=== PATIENT | male | born 1940 | race Caucasian/White ===

== ENCOUNTER 2020-07-05 19:45 | Inpatient (IN) | payer OTHER ==
--- NOTE | 2020-07-05 19:57 | PDOC ---
Attending Attestation - Resident Resident Name: DiegojenniferMiky - ED Attending Attestation I have performed the following: I have examined & evaluated the patient, The case was reviewed & discussed with the resident, I agree w/resident's findings & plan - HPI HPI: 07/05/20 20:50 Pt comes with seizure episode today. He had been in the bathroom, and he felt dzzy and fell to the side. Family got him to the living room and there he had 3 small seizures back to back. Pt is on Keppra BID (dose unknown) Pt states that his last seizure was February and that he has about 2-3 seizures per year Pt has no neurologist; he sees Dr. Eliane Contreras of [facility]. - Physicial Exam PE: 07/05/20 20:52 Normal neuro exam CN 2 -12 intact Pt has good equal strength motor bilat no neuro deficits. Pt is A+Ox3 heart RRR lungs CTA B abd soft NT ND no c/c/e - Medical Decision Making 07/05/20 20:53 Pt will get labs and CT head and facial bones Case will be d/w neuro title i instructional assistant once all results are back. 07/05/20 21:10 Pt has gone for his CT scans 07/05/20 22:30 Pt's Natalia slightly elevated 2.0; BUN 28 Labs otherwise normal Keppra level sent. Pt's CXR just taken 07/05/20 22:31 Pt has a late subacute cortical infarct that could account for his dizziness. Pt will be admitted, he will get an MRI; pt's KEMAL will be investigated and neurology will be consulted. 07/05/20 22:55 Med hospitalists will be notified. Heart Score/ECG Review - ECG Intrepretation Rhythm: Regular Rhythm - Many Many: Normal - P and AZ Prominent R with upright T in V1 (true posterior ME): No - QRS Poor R Wave Progression: No Q Wave Present: No - ST and T Early Repolarization: No Non Specific ST-T Wave changes: No Flattened T Waves: No Prolonged Q-T Interval: No - ECG Impressions Normal ECG: Yes Non-specific ST Elevation: No Ischemic Changes: No Bradycardia: Yes Torsades jamarcus Pointes: No Discharge - Discharge Information Problems reviewed: Yes Clinical Impression/Diagnosis: Syncope, Seizure, Occipital cortex infarction, Medial orbital wall fracture Condition: Guarded - Follow up/Referral - Patient Discharge Instructions - Post Discharge Activity
[2020-07-05] MEDS ORDERED: levETIRAcetam 500 MG/5 ML INJECTION VIAL IVPB ONE ×2 (20:53→21:01)
--- NOTE | 2020-07-05 21:11 | PDOC ---
History of Present Illness <LoretoMaria - Last Filed: 07/05/20 22:35> - History of Present Illness Initial Comments: 07/05/20 21:10 79 yo m with pmh seizure, RI, Afib?, HTN, HLD, CHF presents to ED for syncopal event and seizure earlier today. Pt is luxembourger speaker so history was translated by daughter and son who are poor historians. Pt was walking to bathroom where he felt room was dizzy and he collapsed hit his head and had a seizure for about two minutes.; After, he was able to get up and go to the couch where he had another episode of seizure for two minutes where his entire body was shaking. Pt then had two episodes of nbnb emesis. Pt then had one more seizure lasting two minutes at which point EMS arrived and gave 5 versed IM. After which pt explains he did not have any more seizures and feels better. Pt currently denies any dizziness, chest pain, SOB, headache, weakness, abdominal pain. PMH: RI, afib?, HTN, HLD, CVA PSH: Left sided nephrectomy Meds: does not remember Allegies: NKA Social: significant smoking history quit in , social drinker, denies drugs <Miky Pulido - Last Filed: 07/06/20 00:03> - General Chief Complaint: Seizure Stated Complaint: SEIZURE Time Seen by Provider: 07/05/20 19:55 Past History <LoretoMaria - Last Filed: 07/05/20 22:35> - Medical History COPD: No CHF: Yes HTN: Yes - Psycho-Social/Smoking History Smoking History: Unknown if ever smoked - Substance Abuse Hx (Audit-C & DAST Scrn) How often the patient has a drink containing alcohol: Never Score: In Men: 4 or > Positive; In Women: 3 or > Positive: 0 Screen Result (Pos requires Nsg. Audit-10AR): Negative In the last yr the pt used illegal drug/Rx for NonMed reason: No Score: Yes response is considered Positive: 0 Screen Result (Positive result requires Nsg. DAST-10): Negative <Miky Pulido - Last Filed: 07/06/20 00:03> - Medical History Allergies/Adverse Reactions: Allergies Allergy/AdvReac Type Severity Reaction Status Date / Time No Known Allergies Allergy Verified 07/05/20 20:40 Review of Systems - Review of Systems Comments:: 07/05/20 22:47 GENERAL/CONSTITUTIONAL: No fever or chills. No weakness. HEAD, EYES, EARS, NOSE AND THROAT: Decreased vision in right eye due to jenniffer racts and glaucoma.. No ear pain or discharge. No sore throat. CARDIOVASCULAR: No chest pain or shortness of breath RESPIRATORY: No cough, wheezing, or hemoptysis. GASTROINTESTINAL: No current nausea. 2 episodes of vomiting. GENITOURINARY: No dysuria, frequency, or change in urination. MUSCULOSKELETAL: No joint or muscle swelling or pain. No neck or back pain. SKIN: No rash NEUROLOGIC: No headache. Pt had prior instance of vertigo (none currently), pt has left sided weakness (chronic since stroke last year) ENDOCRINE: No increased thirst. No abnormal weight change. ALLERGIC/IMMUNOLOGIC: No hives or skin allergy. <Miky Pulido - Last Filed: 07/06/20 00:03> *Physical Exam - Vital Signs Last Vital Signs Temp Pulse Resp BP Pulse Ox 98.1 F 62 19 167/82 98 07/05/20 20:13 07/05/20 20:13 07/05/20 20:13 07/05/20 20:13 07/05/20 20:13 <Maria Dangelo - Last Filed: 07/05/20 22:35> - Vital Signs Last Vital Signs Temp Pulse Resp BP Pulse Ox 98.1 F 62 19 167/82 98 07/05/20 20:13 07/05/20 20:13 07/05/20 20:13 07/05/20 20:13 07/05/20 20:13 - Physical Exam 07/06/20 00:00 GENERAL: Awake, alert, and fully oriented, in no acute distress HEAD: Erythema on frontal bone. EYES: EOMI, sclera anicteric, conjunctiva clear ENT: Auricles normal inspection, hearing grossly normal, nares patent, oropharynx clear without exudates. Moist mucosa NECK: Normal ROM, supple, no lymphadenopathy, JVD, or masses, no Cranial spine tenderness or step off LUNGS: No distress, speaks full sentences, decreased breath sounds at bases. HEART: Bradycardic and regular rhythm, normal S1 and S2, no murmurs, rubs or gallops, peripheral pulses normal and equal bilaterally. ABDOMEN: Soft, nontender, normoactive bowel sounds. No guarding, no rebound. No masses EXTREMITIES : Normal inspection, Normal range of motion, bilateral lower ext edema. NEUROLOGICAL: Cranial nerves II through XII intact. 5/5 muscle strength in Right upper ext and right lower ext. 4/5 muscle strength in right lower and right upper ext (chronic since last year). Finger to nose intact. Normal speech, no focal sensorimotor deficits SKIN: Warm, Dry, normal turgor, no rashes or lesions noted <Miky Pulido - Last Filed: 07/06/20 00:03> ED Treatment Course - LABORATORY CBC & Chemistry Diagram: 07/05/20 20:50 07/05/20 20:50 - ADDITIONAL ORDERS Additional order review: Laboratory Results 07/05/20 07/05/20 20:50 20:50 PT with INR 12.40 INR 1.05 PTT (Actin FS) 27.1 Sodium 142 Potassium 4.4 Chloride 105 Carbon Dioxide 28 Anion Gap 9 BUN 28.6 H Creatinine 2.0 H Est GFR (CKD-EPI)AfAm 35.73 Est GFR (CKD-EPI)NonAf 30.83 Random Glucose 123 H Calcium 9.2 Magnesium 2.4 Total Bilirubin 0.5 AST 27 ALT 32 Alkaline Phosphatase 64 Creatine Kinase 179 Creatine Kinase Index 1.0 CK-MB (CK-2) 1.9 Troponin I < 0.02 Total Protein 7.8 Albumin 4.0 07/05/20 20:50 RBC 5.32 MCV 87.9 MCHC 32.1 RDW 13.7 MPV 9.7 Neutrophils % 68.0 Lymphocytes % 24.2 Monocytes % 3.3 L Eosinophils % 4.0 Basophils % 0.5 - RADIOLOGY Radiology Studies Ordered: Category Date Time Status CERVICAL SPINE CT W/O CONTR [CT] Stat CT Scan 07/05/20 20:[address] W/O CONTRAST [CT] Stat CT Scan 07/05/20 20:[address] WITHOUT CONTRAST [CT] Stat CT Scan 07/05/20 20:23 Completed - Medications Given in the ED: ED Medications Discontinued Medications Generic Name Dose Route Start Last Admin Trade Name Freq PRN Reason Stop Dose Admin Levetiracetam 1,000 mg 07/05/20 20:53 07/05/20 21:44 Keppra Injection - IVPB 07/05/20 20:54 1,000 mg ONCE ONE Administration <Maria Dangelo - Last Filed: 07/05/20 22:35> - LABORATORY CBC & Chemistry Diagram: 07/05/20 20:50 07/05/20 20:50 <Miky Pulido - Last Filed: 07/06/20 00:03> Medical Decision Making - Medical Decision Making 79 year old male with above PMH presented to ED for multiple seizures occurring today, and a syncopal episode. Initial Vital Signs Temp Pulse Resp BP Pulse Ox 98.1 F 62 19 167/82 98 07/05/20 20:13 07/05/20 20:13 07/05/20 20:13 07/05/20 20:13 07/05/20 20:13 Laboratory Last Values WBC 6.9 K/mm3 (4.0-10.0) 07/05/20 20:50 RBC 5.32 M/mm3 (4.00-5.60) 07/05/20 20:50 Hgb 15.0 GM/dL (11.7-16.9) 07/05/20 20:50 Hct 46.7 % (35.4-49) 07/05/20 20:50 MCV 87.9 fl (80-96) 07/05/20 20:50 MCH 28.2 pg (25.7-33.7) 07/05/20 20:50 MCHC 32.1 g/dl (32.0-35.9) 07/05/20 20:50 RDW 13.7 % (11.9-15.9) 07/05/20 20:50 Plt Count 131 K/MM3 (134-434) L 07/05/20 20:50 MPV 9.7 fl (7.5-11.1) 07/05/20 20:50 Absolute Neuts (auto) 4.7 K/mm3 (1.5-8.0) 07/05/20 20:50 Neutrophils % 68.0 % (42.8-82.8) 07/05/20 20:50 Lymphocytes % 24.2 % (8-40) 07/05/20 20:50 Monocytes % 3.3 % (3.8-10.2) L 07/05/20 20:50 Eosinophils % 4.0 % (0-4.5) 07/05/20 20:50 Basophils % 0.5 % (0-2.0) 07/05/20 20:50 Nucleated RBC % 0 % (0-0) 07/05/20 20:50 PT with INR 12.40 SEC (9.7-13.0) 07/05/20 20:50 INR 1.05 (0.83-1.09) 07/05/20 20:50 PTT (Actin FS) 27.1 SECONDS (25.2-36.5) 07/05/20 20:50 Sodium 142 mmol/L (136-145) 07/05/20 20:50 Potassium 4.4 mmol/L (3.5-5.1) 07/05/20 20:50 Chloride 105 mmol/L (98-107) 07/05/20 20:50 Carbon Dioxide 28 mmol/L (21-32) 07/05/20 20:50 Anion Gap 9 MMOL/L (8-16) 07/05/20 20:50 BUN 28.6 mg/dL (7-18) H 07/05/20 20:50 Creatinine 2.0 mg/dL (0.55-1.3) H 07/05/20 20:50 Est GFR (CKD-EPI)AfAm 35.73 07/05/20 20:50 Est GFR (CKD-EPI)NonAf 30.83 07/05/20 20:50 Random Glucose 123 mg/dL (74-106) H 07/05/20 20:50 Calcium 9.2 mg/dL (8.5-10.1) 07/05/20 20:50 Magnesium 2.4 mg/dL (1.8-2.4) 07/05/20 20:50 Total Bilirubin 0.5 mg/dL (0.2-1) 07/05/20 20:50 AST 27 U/L (15-37) 07/05/20 20:50 ALT 32 U/L (13-61) 07/05/20 20:50 Alkaline Phosphatase 64 U/L (45-117) 07/05/20 20:50 Creatine Kinase 179 U/L (26-308) 07/05/20 20:50 Creatine Kinase Index 1.0 % (0.0-5.0) 07/05/20 20:50 CK-MB (CK-2) 1.9 ng/mL (0.5-3.6) 07/05/20 20:50 Troponin I < 0.02 ng/ml (0.00-0.05) 07/05/20 20:50 Total Protein 7.8 g/dl (6.4-8.2) 07/05/20 20:50 Albumin 4.0 g/dl (3.4-5.0) 07/05/20 20:50 No leukocytosis. No anemia. No electrolyte abnormalities. KEMAL. No transaminitis. Troponin undetectable. Medications ordered Sodium Chloride [Normal Saline -] 250 ml IV ONCE ONE levETIRAcetam INJECTION [Keppra Injection -] 1,[address]CE ONE CT head negative for acute findings, subacute to chronic infarct noted. Pt reported hx of prior TIA. Pt to be admitted. <Maria Dangelo - Last Filed: 07/05/20 22:35> - Medical Decision Making 07/05/20 23:24 Case was discussed with resident Dr. Back. Pt HPI, ED course and current plan of management was discussed with resident. Resident asked for neuro consult. Dr. Lombardi was notified of pt who states no MRI needed right now and will see pt tomorrow to decide on MRI. Pt was admitted to telemetry to Dr. Gan. <Miky Pulido - Last Filed: 07/06/20 00:03> Discharge <Maria Dangelo - Last Filed: 07/05/20 22:35> - Discharge Information Problems reviewed: Yes - Admission Yes <Miky Pulido - Last Filed: 07/06/20 00:03> - Discharge Information Clinical Impression/Diagnosis: Syncope, Seizure, Occipital cortex infarction, Medial orbital wall fracture Condition: Guarded
[2020-07-05 21:32] LABS: BASO % 0.5 % (0-2.0); HEMATOCRIT 46.7 % (35.4-49); LYMPH % 24.2 % (8-40); MCH 28.2 pg (25.7-33.7); MCHC 32.1 g/dl (32.0-35.9); MEAN CELL VOLUME 87.9 fl (80-96); MEAN PLT VOLUME 9.7 fl (7.5-11.1); MONO % 3.3 % (3.8-10.2); PLATELET COUNT 131 K/MM3 (134-434); RBC 5.32 M/mm3 (4.00-5.60); RDW 13.7 % (11.9-15.9); WHITE BLOOD COUNT 6.9 K/mm3 (4.0-10.0)
[2020-07-05 21:38] LABS: INR 1.05 (0.83-1.09); PROTHROMBIN TIME (PATIENT) 12.4 SEC (9.7-13.0)
[2020-07-05 21:41] LABS: ACTIVATED PTT 27.1 SECONDS (25.2-36.5)
[2020-07-05 22:02] LABS: ALK PHOS 64 U/L (45-117); ANION GAP 9 MMOL/L (8-16); BILIRUBIN,TOTAL 0.5 mg/dL (0.2-1); BLOOD UREA NITROGEN 28.6 mg/dL (7-18); CALCIUM 9.2 mg/dL (8.5-10.1); CHLORIDE 105 mmol/L (98-107); CO2 28 mmol/L (21-32); GLUCOSE,RANDOM 123 mg/dL (74-106); MAGNESIUM 2.4 mg/dL (1.8-2.4); POTASSIUM 4.4 mmol/L (3.5-5.1); SGOT/AST 27 U/L (15-37); SGPT/ALT 32 U/L (13-61); SODIUM 142 mmol/L (136-145); TOT PROT 7.8 g/dl (6.4-8.2)
[2020-07-05] MEDS ORDERED: SODIUM CHLORIDE 0.9% 500 ML INFUS.BAG IV ONE (22:30)
--- NOTE | 2020-07-05 23:33 | PN ---
Teaching Attending Note Name of Resident: Robinson Fulton ATTENDING PHYSICIAN STATEMENT I saw and evaluated the patient. I reviewed the resident's note and discussed the case with the resident. I agree with the resident's findings and plan as documented. SUBJECTIVE: Patient is a 79 year old man with a PMH of Seizure disorder, HI, Afib?, HTN, CVA, Glaucoma, Left nephrectomy (s/p trauma 18 years ago), HLD and CHF presents to ER for syncopal event and seizure earlier today. Patient reports he was walking to bathroom where he felt room was dizzy and he collapsed hit his head and had a seizure for about two minutes. After, he was able to get up and go to the couch where he had another episode of seizure for two minutes where his entire body was shaking. He then had two episodes of non bloody non bilious vomiting. Patient then had one more seizure lasting two minutes at which point EMS arrived and gave 5 versed IM. After which patient explains he did not have any more seizures and feels better. Patient denies chest pain, shortness of breath, abdominal pain, headache, palpitations, dizziness, fever, chills, nausea, vomiting, diarrhea, constipation, dysuria, frequency, urgency, melena, hematochezia or hematuria. Ex-smoker. Denies alcohol, tobacco or illicit drug use. No sick contacts or recent travels. Family history is unremarkable. OBJECTIVE: Alert and not orthostatic Vital Signs Period Temp Pulse Resp BP Sys/Gamez Pulse Ox Last 24 Hr 98.1 F 61-62 19-19 167/82 98-98 HEENT: No Jaundice, eye redness or discharge, PERRLA, EOMI. Normocephalic, atraumatic. Left facial droop; edentulous. External ears are normal and hearing is grossly intact. No nasal discharge. Neck: Supple, nontender. No palpable adenopathy or thyromegaly. No JVD Chest: Good effort. Clear to auscultation and percussion. Heart: Regular. No S3, rub or murmur Abdomen: Not distended, soft, nontender and no HSM. No rebound or guarding. Normal bowel sounds. Ext: Peripheral pulses intact. No leg edema. Skin: Warm and dry. No petechiae, rash or ecchymosis. Neuro: Alert. Oriented to person. CN 2-12 grossly intact. Sensation grossly intact in all four extremities and DTR are symmetric. Psych: Appropriate mood and affect. Good insight. Abnormal Lab Results 07/05/20 07/05/20 20:50 20:50 Plt Count 131 L Monocytes % 3.3 L BUN 28.6 H Creatinine 2.0 H Random Glucose 123 H Home Medications Medication Instructions Recorded Levetiracetam [Keppra] mg PO BID 07/06/20 Current Medications Generic Name Dose Route Start Last Admin Trade Name Sarita PRN Reason Stop Dose Admin Heparin Sodium (Porcine) 5,000 unit 07/06/20 06:00 Heparin - SQ TID [facility] ASSESSMENT AND PLAN: 1. Seizure with ?Syncope - Likely that the syncope may have resulted from the seizure. Patient loaded with 1000 mg IV Keppra in the ER. Keppra level pending. ER staff discussed case with the Neurologist who will see the case first before deciding on need for brain MRI. No evidence of acute intracranial pathology on noncontrast head CT scan - chronic vs subacute right occipital infarct is reported. C-spine CT did not show any fracture or subloxation. Facial bone CT showed medial wall fracture of the right orbit - deemed chronic. CXR shows wide mediastinum, unfolded aorta, cardiomegaly and RLL atelectasis. EKG shows sinus bradycardia at 52/minute, LAE, 1o AV block and QTc [address]-T wave changes. Initial troponin is negative. Will admit to telemetry, trend troponin, get ECHO, TSH, carotid doppler, fasting lipids, keep him NPO, do speech and swallow evaluation, neurochecks and implement fall/aspiration/seizure precautions. Consult PT. Get urinalysis STAT. During the day, will get details about history of Afib from his PCP. Viral testing for COVID-19 ordered and patient placed on airborne, droplet and contact isolation. Will continue comprehensive care for all of patients comorbid conditions. 2. KEMAL? Will get urinalysis, kidney sonogram, hydrate gently, monitor urine output and consult Nephrology. Avoid nephrotoxic agents such as NSAIDS, aminoglycosides, contrast dyes and certain Alternative medicine products. 3. Obesity Counseled on the risks associated with obesity. Will provide patient all the necessary assistance, counseling and positive reinforcement to facilitate weight loss. Consult gluer machine operator. 4. Uncontrolled hypertension Will restart suitable outpatient antihypertensive drugs when clinically appropriate. Subsequently, will revise regimen to ensure [id number] excellent BP control. Patient counseled on the injurious effects of uncontrolled hypertension. Nonpharmacologic measures to control hypertension like weight loss, salt restriction and exercise stressed. Importance of adherence to treatment regimen and attainment of normotension emphasized. 5. DVT prophylaxis - Heparin 5000u sq tid. 6. Advance directives - Full code
[2020-07-06 02:27] VITALS: BMI 34.4
--- NOTE | 2020-07-06 05:16 | HP ---
CHIEF COMPLAINT: syncopal episode PCP: HISTORY OF PRESENT ILLNESS: Pt was in bathroom yesterday and began feeling dizzy. He fell to the floor in the bathroom and had a seizure for about 2 minutes. After it stopped, the patient got up by himself and walked to his sofa and began to have a seizure again for 2 minutes. Thereafter, the pt had non-bilious, nonbloody vomiting, which was then followed by another 2 minutes of seizure. EMS arrived and gave the pt 5 versed IM. Denied urinary/bowel incontinence and post-ictal confusion. Seizures were witnessed by his family. Seizures first started 5 months. He saw a physician in a clinic in [place] and received keppra. Denies ever being hospitalized for a seizure. Takes keppra daily and is compliant with his medications. Last seizure was in February ER course was notable for: (1) BUN/Cr 28.6/2 (2) CTH: R occipital cortical infarct, chronic or late subacute. (3) C-Spine: no fracture, degenerative disc space narrowing (4) face bone CT; R orbit fracture chronic (5) EKG: sinus bradycardia. 1st degree AV block Recent Travel: traveled to [place] 3 months ago to visit family PAST MEDICAL HISTORY: HTN, HLD, seizures, LA, glaucoma, CVA Endorsed L sided weakness that improved after physical therapy PAST SURGICAL HISTORY: L nephrectomy 18 years ago 2/2 accident after falling off a ladder and injuring his kidney Social History: Smokin ppd X 30 yrs . Quit in 1980s Alcohol:socially Drugs: denies Lives with his son. Uses a cane for walking Allergies No Known Allergies Allergy (Verified 07/05/20 20:40) HOME MEDICATIONS: Home Medications Medication Instructions Recorded Levetiracetam [Keppra] mg PO BID 07/06/20 REVIEW OF SYSTEMS CONSTITUTIONAL: Absent: fever, chills, diaphoresis, generalized weakness, malaise, loss of appetite, weight change HEENT: Absent: rhinorrhea, nasal congestion, throat pain, throat swelling, difficulty swallowing, mouth swelling, ear pain, eye pain, visual changes CARDIOVASCULAR: Absent: chest pain, syncope, palpitations, irregular heart rate, lightheadedness, peripheral edema RESPIRATORY: Absent: cough, shortness of breath, dyspnea with exertion, orthopnea, wheezing, stridor, hemoptysis GASTROINTESTINAL: Absent: abdominal pain, abdominal distension, nausea, vomiting, diarrhea, constipation, melena, hematochezia GENITOURINARY: Absent: dysuria, frequency, urgency, hesitancy, hematuria, flank pain, genital pain MUSCULOSKELETAL: Absent: myalgia, arthralgia, joint swelling, back pain, neck pain SKIN: Absent: rash, itching, pallor HEMATOLOGIC/IMMUNOLOGIC: Absent: easy bleeding, easy bruising, lymphadenopathy, frequent infections ENDOCRINE: Absent: unexplained weight gain, unexplained weight loss, heat intolerance, cold intolerance NEUROLOGIC: Absent: headache, focal weakness or paresthesias, dizziness, unsteady gait, seizure, mental status changes, bladder or bowel incontinence PSYCHIATRIC: Absent: anxiety, depression, suicidal or homicidal ideation, hallucinations. PHYSICAL EXAMINATION Vital Signs - 24 hr 07/05/20 07/05/20 07/06/20 20:13 23:02 00:55 Temperature 98.1 F Pulse Rate 62 Pulse Rate [ 61 50 L Left] Respiratory 19 19 16 Rate Blood Pressure 167/82 Blood Pressure 164/87 [Left Arm] O2 Sat by Pulse 98 98 98 Oximetry (%) 07/06/20 02:00 Temperature 97.9 F Pulse Rate 51 L Pulse Rate [ Left] Respiratory 20 Rate Blood Pressure 172/77 H Blood Pressure [Left Arm] O2 Sat by Pulse 97 Oximetry (%) GENERAL: Awake, alert, and fully oriented, in no acute distress. HEAD: Normal with no signs of trauma. Facial droop on L side that resolved with smiling EYES: Pupils equal, round and reactive to light, extraocular movements intact, sclera anicteric, conjunctiva clear. No lid lag. EARS, NOSE, THROAT: Ears normal, nares patent, oropharynx clear without exudates. Moist mucous membranes. missing teeth NECK: Normal range of motion, supple without lymphadenopathy, JVD, or masses. LUNGS: Breath sounds equal, clear to auscultation bilaterally. No wheezes, and no crackles. No accessory muscle use. HEART: Regular rate and rhythm, normal S1 and S2 without murmur, rub or gallop. ABDOMEN: Soft, nontender, obese abd, normoactive bowel sound MUSCULOSKELETAL: Normal range of motion at all joints. No bony deformities or tenderness. No CVA tenderness. UPPER EXTREMITIES: 2+ pulses, warm, well-perfused. No cyanosis. No clubbing. No peripheral edema. 5/5 strength b/l. Sensation intact b/l LOWER EXTREMITIES: 2+ pulses, warm, well-perfused. No calf tenderness. No peripheral edema. 5/5 strength b/l. sensation intact b/l NEUROLOGICAL: Cranial nerves II-XII intact Normal speech. Normal gait. PSYCHIATRIC: Cooperative. Good eye contact. Appropriate mood and affect. Laboratory Results - last 24 hr 07/05/20 07/05/20 07/05/20 20:50 20:50 20:50 WBC 6.9 RBC 5.32 Hgb 15.0 Hct 46.7 MCV 87.9 MCH 28.2 MCHC 32.1 RDW 13.7 Plt Count 131 L MPV 9.7 Absolute Neuts (auto) 4.7 Neutrophils % 68.0 Lymphocytes % 24.2 Monocytes % 3.3 L Eosinophils % 4.0 Basophils % 0.5 Nucleated RBC % 0 PT with INR 12.40 INR 1.05 PTT (Actin FS) 27.1 Sodium 142 Potassium 4.4 Chloride 105 Carbon Dioxide 28 Anion Gap 9 BUN 28.6 H Creatinine 2.0 H Est GFR (CKD-EPI)AfAm 35.73 Est GFR (CKD-EPI)NonAf 30.83 Random Glucose 123 H Calcium 9.2 Magnesium 2.4 Total Bilirubin 0.5 AST 27 ALT 32 Alkaline Phosphatase 64 Creatine Kinase 179 Creatine Kinase Index 1.0 CK-MB (CK-2) 1.9 Troponin I < 0.02 Total Protein 7.8 Albumin 4.0 ASSESSMENT/PLAN: 79 M, PMH of HTN, HLD, seizures, LA, glaucoma, CVA presents s/p a witnessed syncopal episode. #syncopal episode 2/2 seizure -seizures witnessed by family -keppra 500 mg IVPB BID, home dose needs to be confirmed -seizure, fall, aspiration precautions -neuro checks -f/u speech & swallow evaluation. NPO until after eval -c/w tele monitoring -f/u echo, carotid ultrasound -QTC on telemonitoring 488. -orthostatics vitals negative -EKG: sinus bradycardia @ 52 bpm, 1st degree block. QTC 448. #KEMAL -f/u UA -f/u renal US -f/u renal consult -avoid nephrotoxic agents such as NSAIDs or contrast #Obesity BMI: 34.4 -f/u principal associate consult -fasting lipid #HTN #HLD #Glaucoma #H/o CVA Pt unable to recall home medications and dosages. #DVT Heparin Sq 500 TID #FEN no IVF monitor lytes NPO after midnight until cleared by speech and swallow #DISPO maintain tele Visit type - Medication Review Med list reviewed for High Risk Meds patients 65 and older: Yes - Emergency Visit Emergency Visit: Yes ED Registration Date: 07/05/20 Care time: The patient presented to the Emergency Department on the above date and was hospitalized for further evaluation of their emergent condition. - New Patient This patient is new to me today: Yes Date on this admission: 07/06/20 - Critical Care Critical Care patient: No ATTENDING PHYSICIAN STATEMENT I saw and evaluated the patient. I reviewed the resident's note and discussed the case with the resident. I agree with the resident's findings and plan as documented. SUBJECTIVE: OBJECTIVE: ASSESSMENT AND PLAN:
[2020-07-06] MEDS: HEPARIN NA (PORCINE) 5,000 UNITS/ML 1ML VIAL SQ SCH ×2 (06:26→13:41)
[2020-07-06] MEDS ORDERED: SODIUM CHLORIDE 1,000 ML IV SCH (07:15)
[2020-07-06 07:42] LABS: ALBUMIN 3.5 g/dl (3.4-5.0); BILIRUBIN,TOTAL 0.4 mg/dL (0.2-1); BLOOD UREA NITROGEN 25.9 mg/dL (7-18); CALCIUM 8.6 mg/dL (8.5-10.1); CREATININE 1.5 mg/dL (0.55-1.3); MAGNESIUM 2.2 mg/dL (1.8-2.4); PHOSPHOROUS 3.6 mg/dL (2.5-4.9); TOT PROT 6.8 g/dl (6.4-8.2)
[2020-07-06 09:46] LABS: EPI CELLS 6 /uL (0-25.1); HYALINE CASTS 0 /uL (0-3.1); PH,URINE 7.5 (5.0-8.0); URINE APPEARANCE CLEAR; URINE BACTERIA 262 /uL (0-1359); URINE BILIRUBIN NEGATIVE (NEGATIVE); URINE COLOR YELLOW; URINE GLUCOSE (UA) NEGATIVE (NEGATIVE); URINE KETONE NEGATIVE (NEGATIVE); URINE LEUK ESTERASE NEGATIVE (NEGATIVE); URINE NITRITE NEGATIVE (NEGATIVE); URINE PROTEIN 1+ (NEGATIVE); URINE UROBILINOGEN 0.2 mg/dL (0.2-1.0); URINE WBC 3 /uL (0-25.8)
[2020-07-06 09:48] LABS: BASO % 1.1 % (0-2.0); EOS % 10.1 % (0-4.5); HEMATOCRIT 46.2 % (35.4-49); HEMOGLOBIN 14.6 GM/dL (11.7-16.9); LYMPH % 36.7 % (8-40); MCH 28.4 pg (25.7-33.7); MCHC 31.5 g/dl (32.0-35.9); MEAN CELL VOLUME 90.1 fl (80-96); MEAN PLT VOLUME 10.2 fl (7.5-11.1); NEUT % 43.1 % (42.8-82.8); PLATELET COUNT 109 K/MM3 (134-434); RBC 5.12 M/mm3 (4.00-5.60); RDW 13.8 % (11.9-15.9); WHITE BLOOD COUNT 6.4 K/mm3 (4.0-10.0)
[2020-07-06] MEDS ORDERED: levETIRAcetam 500 MG/5 ML INJECTION VIAL IVPB SCH (10:00)
--- NOTE | 2020-07-06 10:51 | EKG ---
Test Reason : Blood Pressure : / mmHG Vent. Rate : 052 BPM Atrial Rate : 052 BPM P-R Int : 230 ms QRS Dur : 082 ms QT Int : 482 ms P-R-T Axes : 057 041 064 degrees QTc Int : 448 ms POOR DATA QUALITY, INTERPRETATION MAY BE ADVERSELY AFFECTED SINUS BRADYCARDIA WITH 1ST DEGREE A-V BLOCK POSSIBLE LEFT ATRIAL ENLARGEMENT BORDERLINE ECG NO PREVIOUS ECGS AVAILABLE Confirmed by Danica Stuart ([id number]) on 07/06/2020 10:51:02 AM Referred By: Confirmed By:Danica Stuart
--- NOTE | 2020-07-06 11:01 | PN ---
Progress Note (short form) - Note Progress Note: SUBJECTIVE Seen and examined at bedside. Spoke to patient through supervisor electron tube processing. Patient is alert and oriented x3 and states he is feeling much better. Contacted the family and attempt to obtain medications as well but they did not know them. Called the pharmacy but they are closed. Family instructed to obtain home medications and call nursing station. OBJECTIVE Last Vital Signs Temp Pulse Resp BP Pulse Ox 97.9 F 45 L 19 131/58 L 97 07/06/20 10:00 07/06/20 10:00 07/06/20 10:00 07/06/20 10:00 07/06/20 10:00 PE GEN: NAD HEENT: NC/AT PEARLL RESP: CTAB CARDS: RRR, -MRG ABD: soft, nt/nd +BS EXT: No swelling/Edema Neuro: Non-focal, A&OX3 Labs/Imaging: reviewed 79-year-old male with past medical history of seizure disorder, [place], A. fib?, Hypertension, CVA, glaucoma, left nephrectomy, hyperlipidemia, CHF presents to the ED with syncopal episode and seizure. #Syncope versus seizure Patient reports subjective feeling of dizziness and sitting down on the toilet after which family reports seizure. Syncopal event may have precipitated seizure Telemetry Echocardiogram Troponins negative x2 EKG shows sinus bradycardia with first-degree AV block Carotid Doppler Physical therapy Obtain home medications #Seizure Was witnessed by family. Report is consistent with tonic-clonic seizure Follow-up Keppra level Keppra 500 mg IV twice daily for now Confirm home dose Keppra Pending neurology consultation #Additional medical history Family is uncertain what medications the patient is on. His pharmacy was closed. Family has been asked to check bottles and call nursing stations with the doses and names of medications so that we can restart them #DVT prophylaxis: Subcu heparin Visit type - Emergency Visit Emergency Visit: Yes ED Registration Date: 07/05/20 Care time: The patient presented to the Emergency Department on the above date and was hospitalized for further evaluation of their emergent condition. - New Patient This patient is new to me today: Yes Date on this admission: 07/06/20 - Critical Care Critical Care patient: No - Medication Review Med list reviewed for High Risk Meds patients 65 and older: No (unable to obtain)
[2020-07-06 14:00] LABS: URINE RBC 60 /uL (0-23.9)
[2020-07-06] MEDS: METOPROLOL TARTRATE 25 MG TABLET (FP) PO SCH (16:42)
[2020-07-06] MEDS: TAMSULOSIN HCL 0.4 MG CAP PO SCH (16:42)
--- NOTE | 2020-07-06 18:33 | CON.NEURO ---
Consult - Smoking History Smoking history: Never smoked Have you smoked in the past 12 months: No Home Medications - Allergies Allergies/Adverse Reactions: Allergies Allergy/AdvReac Type Severity Reaction Status Date / Time No Known Allergies Allergy Verified 07/05/20 20:40 - Home Medications Home Medications: Ambulatory Orders Allopurinol [Zyloprim -] 100 mg PO BID 07/06/20 Apixaban [Eliquis -] 5 mg PO DAILY 07/06/20 Furosemide [Lasix -] 40 mg PO BID 07/06/20 Levetiracetam [Keppra] 500 mg PO DAILY 07/06/20 Lisinopril [Prinivil] 10 mg PO DAILY 07/06/20 Metoprolol Tartrate 25 mg PO DAILY 07/06/20 Pantoprazole Sodium [Protonix] 40 mg PO BID 07/06/20 Simvastatin [Zocor -] 40 mg PO HS 07/06/20 Sotalol HCl [Betapace -] 80 mg PO DAILY 07/06/20 Tamsulosin HCl [Flomax] 0.4 mg PO DAILY 07/06/20 Physical Exam-Neuro Vital Signs: Vital Signs Temperature 97.9 F 07/06/20 14:00 Pulse Rate 67 07/06/20 14:00 Respiratory Rate 20 07/06/20 14:00 Blood Pressure 141/85 07/06/20 14:00 O2 Sat by Pulse Oximetry (%) 99 07/06/20 14:00 Labs: CBC, BMP 07/06/20 05:57 07/06/20 05:57 INR, PTT INR 1.05 (0.83-1.09) 07/05/20 20:50 Assessment/Plan CC Breakthrough seizure HPI 79 year old male, seen with daughter at bed side. Patient was feeling dizzy for one day and had two episode of seizure. as per daughter he did not miss [facility]. He was given versed and later had ct head in hospital. ct head showed there is right occpital stroke He has history of stroke and on eliquis, not clear why he is on eliquis. He has stroke in past. Recent Travel: traveled to [place] 3 months ago to visit family PAST MEDICAL HISTORY: HTN, HLD, seizures, UT, glaucoma, CVA Endorsed L sided weakness that improved after physical therapy PAST SURGICAL HISTORY: L nephrectomy 18 years ago 2/2 accident after falling off a ladder and injuring his kidney Social History: Smokin ppd X 30 yrs . Quit in Alcohol:socially Drugs: denies Lives with his son. 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
[2020-07-06] MEDS: ALLOPURINOL 100 MG TABLET (FP) PO SCH (21:09)
[2020-07-06] MEDS: levETIRAcetam 250 MG TABLET PO SCH (21:09)
[2020-07-06] MEDS: PANTOPRAZOLE 40 MG TABLET PO SCH (21:09)
[2020-07-06] MEDS: APIXABAN 5 MG TABLET PO SCH (21:10)
[2020-07-06] MEDS ORDERED: ATORVASTATIN CA 10 MG TABLET (FP) PO SCH (22:00)
[2020-07-07 07:53] LABS: HEMATOCRIT 44.2 % (35.4-49); HEMOGLOBIN 14.3 GM/dL (11.7-16.9); MCH 28.4 pg (25.7-33.7); MCHC 32.3 g/dl (32.0-35.9); MEAN CELL VOLUME 87.8 fl (80-96); MEAN PLT VOLUME 9.8 fl (7.5-11.1); PLATELET COUNT 115 K/MM3 (134-434); RBC 5.03 M/mm3 (4.00-5.60); RDW 13.5 % (11.9-15.9); WHITE BLOOD COUNT 5.6 K/mm3 (4.0-10.0)
[2020-07-07 08:14] LABS: ANION GAP 5 MMOL/L (8-16); BLOOD UREA NITROGEN 23.9 mg/dL (7-18); CALCIUM 8.3 mg/dL (8.5-10.1); CHLORIDE 110 mmol/L (98-107); CHOLESTEROL 149 mg/dL (50-200); CO2 24 mmol/L (21-32); CREATININE 1.5 mg/dL (0.55-1.3); GLUCOSE,RANDOM 80 mg/dL (74-106); HDL CHOLESTEROL 44 mg/dL (40-60); LDL CHOLESTEROL (ONLY SJRH) 88 mg/dL (5-100); POTASSIUM 3.8 mmol/L (3.5-5.1); SODIUM 139 mmol/L (136-145); TRIGLYCERIDES 92 mg/dL (0-150)
[2020-07-07] MEDS: TAMSULOSIN HCL 0.4 MG CAP PO SCH (09:02)
[2020-07-07] MEDS: SOTALOL HCL 80 MG TABLET (FP) PO SCH (09:02)
[2020-07-07] MEDS: METOPROLOL TARTRATE 25 MG TABLET (FP) PO SCH (09:03)
[2020-07-07] MEDS: ALLOPURINOL 100 MG TABLET (FP) PO SCH ×2 (09:03→21:16)
[2020-07-07] MEDS: APIXABAN 5 MG TABLET PO SCH ×2 (09:03→21:16)
[2020-07-07] MEDS: levETIRAcetam 250 MG TABLET PO SCH ×2 (09:04→21:16)
[2020-07-07] MEDS: PANTOPRAZOLE 40 MG TABLET PO SCH ×2 (09:04→21:16)
--- NOTE | 2020-07-07 13:37 | PN ---
Teaching Attending Note Name of Resident: Tao Davidson ATTENDING PHYSICIAN STATEMENT I saw and evaluated the patient. I reviewed the resident's note and discussed the case with the resident. I agree with the resident's findings and plan as documented. SUBJECTIVE: pt seen and examined, denies complains OBJECTIVE: Last Vital Signs Temp Pulse Resp BP Pulse Ox 98.2 F 56 L 18 133/73 99 07/07/20 09:42 07/07/20 09:42 07/07/20 09:42 07/07/20 11:01 07/07/20 09:42 GEN: not in acute distressed, pleasant HEENT: NC/AT EOMI, pupils RRR, not p/c/j RESP: CTA bilat CARDS: non tachy, no murmurs ABD: soft, nt/nd +BS EXT: No swelling/Edema Neuro: Non-focal, A&OX3 CBCD WBC 5.6 K/mm3 (4.0-10.0) 07/07/20 05:40 RBC 5.03 M/mm3 (4.00-5.60) 07/07/20 05:40 Hgb 14.3 GM/dL (11.7-16.9) 07/07/20 05:40 Hct 44.2 % (35.4-49) 07/07/20 05:40 MCV 87.8 fl (80-96) 07/07/20 05:40 MCHC 32.3 g/dl (32.0-35.9) 07/07/20 05:40 RDW 13.5 % (11.9-15.9) 07/07/20 05:40 Plt Count 115 K/MM3 (134-434) L 07/07/20 05:40 MPV 9.8 fl (7.5-11.1) 07/07/20 05:40 CMP Sodium 139 mmol/L (136-145) 07/07/20 05:40 Potassium 3.8 mmol/L (3.5-5.1) 07/07/20 05:40 Chloride 110 mmol/L (98-107) H 07/07/20 05:40 Carbon Dioxide 24 mmol/L (21-32) 07/07/20 05:40 Anion Gap 5 MMOL/L (8-16) L 07/07/20 05:40 BUN 23.9 mg/dL (7-18) H 07/07/20 05:40 Creatinine 1.5 mg/dL (0.55-1.3) H 07/07/20 05:40 Random Glucose 80 mg/dL (74-106) 07/07/20 05:40 Calcium 8.3 mg/dL (8.5-10.1) L 07/07/20 05:40 Total Bilirubin 0.4 mg/dL (0.2-1) 07/06/20 05:57 AST 27 U/L (15-37) 07/06/20 05:57 ALT 27 U/L (13-61) 07/06/20 05:57 Alkaline Phosphatase 55 U/L (45-117) 07/06/20 05:57 Total Protein 6.8 g/dl (6.4-8.2) 07/06/20 05:57 Albumin 3.5 g/dl (3.4-5.0) 07/06/20 05:57 CARDIAC ENZYMES Creatine Kinase 179 U/L (26-308) 07/05/20 20:50 Troponin I 0.03 ng/ml (0.00-0.05) 07/06/20 05:57 Active Medications Allopurinol (Zyloprim -) 100 mg PO BID [facility] Last Admin: 07/07/20 09:03 Dose: 100 mg Documented by: Apixaban (Eliquis -) 5 mg PO BID [facility] Last Admin: 07/07/20 09:03 Dose: 5 mg Documented by: Atorvastatin Calcium (Lipitor -) 10 mg PO [facility] Last Admin: 07/06/20 21:09 Dose: 10 mg Documented by: Levetiracetam (Keppra -) 750 mg PO BID [facility] Last Admin: 07/07/20 09:04 Dose: 750 mg Documented by: Metoprolol Tartrate (Lopressor -) 25 mg PO DAILY [facility] Last Admin: 07/07/20 09:03 Dose: 25 mg Documented by: Pantoprazole Sodium (Protonix -) 40 mg PO BID [facility] Last Admin: 07/07/20 09:04 Dose: 40 mg Documented by: Sotalol HCl (Betapace -) 80 mg PO DAILY [facility] Last Admin: 07/07/20 09:02 Dose: 80 mg Documented by: Tamsulosin HCl (Flomax -) 0.4 mg PO DAILY@0830 [facility] Last Admin: 07/07/20 09:02 Dose: 0.4 mg Documented by: ASSESSMENT AND PLAN: 79-year-old male with past medical history of seizure disorder, [place], A. fib?, Hypertension, Hemorrhagic CVA, glaucoma, left nephrectomy, hyperlipidemia, CHF presents to the ED with syncopal episode and seizure. #Syncope vs convulsive syncope -denies post ictal confusion, had similar episodes in past Telemetry Echocardiogram Carotid Doppler not clinically significant -imaging showed rt orbital non displaced #, EOMI, no diplopia -MRI shows old hemorrhagic infarction with hemosiderin deposition Physical therapy doubt real seizure this time -neurology following #Seizure on Keppra 500 mg bid #aFib on satolol and metoprolol? -HR 50s EKG shows sinus bradycardia with first-degree AV block,QTc 448 -on eliquis with evidence of hemorrhagic stroke -Cardiology consult to optimize medications prior to d/c #DVT prophylaxis: on NOAC
--- NOTE | 2020-07-07 13:45 | PN ---
Physical Exam: SUBJECTIVE: Patient seen and examined at bedside. hook loader used for interview. Patient denies any overnight complaints. Negative change in orthostatic BP testing. Patient currently well. OBJECTIVE: Vital Signs Period Temp Pulse Resp BP Sys/Gamez Pulse Ox Last 24 Hr 97.9 F-98.6 F 47-67 18-20 133-183/73-97 97-99 GENERAL: The patient is awake, alert, and fully oriented, in no acute distress. LUNGS: Breath sounds equal, clear to auscultation bilaterally, no wheezes, no crackles, no accessory muscle use. HEART: Regular rate and rhythm, S1, S2 without murmur, rub or gallop. ABDOMEN: Soft, nontender, nondistended, normoactive bowel sounds, no guarding, no rebound, no hepatosplenomegaly, no masses. EXTREMITIES: 2+ pulses, warm, well-perfused, no edema. SKIN: Warm, dry, normal turgor, no rashes or lesions noted Laboratory Results - last 24 hr 07/06/20 07/06/20 07/07/20 00:30 09:00 05:40 WBC RBC Hgb Hct MCV MCH MCHC RDW Plt Count MPV Sodium 139 Potassium 3.8 Chloride 110 H Carbon Dioxide 24 Anion Gap 5 L BUN 23.9 H Creatinine 1.5 H Est GFR (CKD-EPI)AfAm 50.59 Est GFR (CKD-EPI)NonAf 43.65 Random Glucose 80 Calcium 8.3 L Triglycerides 92 Cholesterol 149 Total LDL Cholesterol 88 HDL Cholesterol 44 TSH 3.11 Urine RBC (Auto) 60 COVID-19 (ROBLES) Not detected 07/07/20 05:40 WBC 5.6 RBC 5.03 Hgb 14.3 Hct 44.2 MCV 87.8 MCH 28.4 MCHC 32.3 RDW 13.5 Plt Count 115 L MPV 9.8 Sodium Potassium Chloride Carbon Dioxide Anion Gap BUN Creatinine Est GFR (CKD-EPI)AfAm Est GFR (CKD-EPI)NonAf Random Glucose Calcium Triglycerides Cholesterol Total LDL Cholesterol HDL Cholesterol TSH Urine RBC (Auto) COVID-19 (ROBLES) Active Medications Generic Name Dose Route Start Last Admin Trade Name Freq PRN Reason Stop Dose Admin Allopurinol 100 mg 07/06/20 22:00 07/07/20 09:03 Zyloprim - PO 100 mg BID KAY Administration Apixaban 5 mg 07/06/20 22:00 07/07/20 09:03 Eliquis - PO 5 mg BID KAY Administration Atorvastatin Calcium 10 mg 07/06/20 22:00 07/06/20 21:09 Lipitor - PO 10 mg HS KAY Administration Levetiracetam 750 mg 07/06/20 22:00 07/07/20 09:04 Keppra - PO 750 mg BID KAY Administration Metoprolol Tartrate 25 mg 07/06/20 15:45 07/07/20 09:03 Lopressor - PO 25 mg DAILY KAY Administration Pantoprazole Sodium 40 mg 07/06/20 22:00 07/07/20 09:04 Protonix - PO 40 mg BID KAY Administration Sotalol HCl 80 mg 07/07/20 10:00 07/07/20 09:02 Betapace - PO 80 mg DAILY KAY Administration Tamsulosin HCl 0.4 mg 07/06/20 15:45 07/07/20 09:02 Flomax - PO 0.4 mg DAILY@0830 KAY Administration ASSESSMENT/PLAN: Mr Braxton Choi is a 79M w a h/o seizure disorder, [place], A. fib on eliquis, Hypertension, CVA, glaucoma, L nephrectomy, hyperlipidemia, CHF presented to the emergency department for a syncope and possible seizure. #Syncope - patient currently monitored on telemetry - echocardiogram pending - Patient placed on Sotalol and metoprolol - Cardiology to recommend medication adjustment - Troponins negative x2 - follow up 3rd trop to r/o ACS Carotid Doppler negative for stenosis Physical therapy Obtain home medications #Seizure -Witnessed tonic-clonic seizure - Keppra level pending Keppra 750 mg IV BID as per neurology (Dr. Cox) - Brain MRI reveals no acute pathology - C spine CT reveals no acute pathology - EEG pending Confirm home dose Keppra #DVT prophylaxis - sq lovenox Visit type - Emergency Visit Emergency Visit: Yes ED Registration Date: 07/05/20 Care time: The patient presented to the Emergency Department on the above date and was hospitalized for further evaluation of their emergent condition. - New Patient This patient is new to me today: Yes Date on this admission: 07/07/20 - Critical Care Critical Care patient: No - Discharge Referral Referred to [facility] No - Medication Review Med list reviewed for High Risk Meds patients 65 and older: Yes ATTENDING PHYSICIAN STATEMENT I saw and evaluated the patient. I reviewed the resident's note and discussed the case with the resident. I agree with the resident's findings and plan as documented. SUBJECTIVE: OBJECTIVE: ASSESSMENT AND PLAN:
--- NOTE | 2020-07-07 15:35 | CON.CARD ---
Consult Consult Specialty:: cardiology Reason for Consultation:: seizures; ?syncope - History of Present Illness History of Present Illness: Pt comes with seizure episode today. He had been in the bathroom, and he felt dizzy and fell to the side. Family got him to the living room and there he had 3 small seizures back to back. Pt is on Keppra BID (dose unknown) Pt states that his last seizure was February and that he has about 2-3 seizures per year Pt has no neurologist; he sees Dr. Eliane Contreras of [facility]. 79 yo m with pmh seizure, MA, Afib?, HTN, HLD, CHF presents to ED for syncopal event and seizure earlier today. Pt was walking to bathroom where he felt room was dizzy and he collapsed hit his head and had a seizure for about two minutes.; After, he was able to get up and go to the couch where he had another episode of seizure for two minutes where his entire body was shaking. Pt then had two episodes of emesis. Pt then had one more seizure lasting two minutes at which point EMS arrived and gave 5 versed IM. After which pt explains he did not have any more seizures and feels better. Pt currently denies any dizziness, chest pain, SOB, headache, weakness, abdominal pain. IN ER, pt was noted to be on both Sotalol and metoprolol. PMH: MA, afib?, HTN, HLD, CVA PSH: Left sided nephrectomy Meds: does not remember Allegies: NKA Social: significant smoking history quit in 1980s, social drinker, denies drugs PMD: Eliane Contreras - Smoking History Smoking history: Never smoked Have you smoked in the past 12 months: No Home Medications - Allergies Allergies/Adverse Reactions: Allergies Allergy/AdvReac Type Severity Reaction Status Date / Time No Known Allergies Allergy Verified 07/05/20 20:40 - Home Medications Home Medications: Ambulatory Orders Allopurinol [Zyloprim -] 100 mg PO BID 07/06/20 Apixaban [Eliquis -] 5 mg PO DAILY 07/06/20 Furosemide [Lasix -] 40 mg PO BID 07/06/20 Levetiracetam [Keppra] 500 mg PO DAILY 07/06/20 Lisinopril [Prinivil] 10 mg PO DAILY 08/08/20 Metoprolol Tartrate 25 mg PO DAILY 07/06/20 Pantoprazole Sodium [Protonix] 40 mg PO BID 07/06/20 Simvastatin [Zocor -] 40 mg PO HS 07/06/20 Sotalol HCl [Betapace -] 80 mg PO DAILY 07/06/20 Tamsulosin HCl [Flomax] 0.4 mg PO DAILY 07/06/20 - Risk Factors Known Risk Factors: Yes: Age, Gender, Other Vital Signs: Vital Signs Temperature 98.5 F 07/07/20 14:05 Pulse Rate 49 L 07/07/20 14:05 Respiratory Rate 20 07/07/20 14:05 Blood Pressure 134/70 07/07/20 14:05 O2 Sat by Pulse Oximetry (%) 99 07/07/20 09:42 - Other Data Labs, Other Data: CBC, BMP 07/07/20 05:40 07/07/20 05:40 INR, PTT INR 1.05 (0.83-1.09) 07/05/20 20:50 Troponin, BNP 07/07/20 05:40 Troponin I < 0.02 Troponin, BNP 07/07/20 05:40 Troponin I < 0.02 Assessment/Plan Seizures hx right occipital parietal hemorrhagic CVA ? 2 yrs ago; signs of HTN affecting the brain HTN HLD obesity ?PAF Hx MA, CHF EKG: sinus bradycardia; 1st degree AVB; QTC wnl. Plan: Seizure w/u and Rx per neurologist. Stop metoprolol; continue Sotalol (on once a day, and this is appropriate, given Cr clearance <60, as discussed with pharmacist); f/u prior cardiac workup at [facility] (pt says he had "electrical shock" to stop arrhythmia (?AF/flutter) and was then placed on Apixaban a year ago). Will f/u HR, QTc. ECHO for LVEF, chamber sizes, valve status. Telemetry Increase statin dose; keep LDL cholesterol < 70 mg/dL. Addendum: Pt's son visited pt. He says his father had an argument with his , then went to the bathroom. He was trying to have a bowel movement when he fell; they could not open the door because his body was blocking it, and had to wait until he woke up on his own. He then had another episode a few minutes later that elicited EMS. Pt is on Sotalol 80 bid and metoprolol 25 mg (?daily; ? tartrate or succinate). Pt was treated at [facility] for cardioversion of "atrial fibrillation". 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 Combs (?amna).
[2020-07-07] MEDS ORDERED: ATORVASTATIN CA 10 MG TABLET (FP) PO SCH (16:57)
--- NOTE | 2020-07-07 20:01 | PN ---
Progress Note (short form) - Note Progress Note: CC Breakthrough seizure HPI 79 year old male, seen with daughter at bed side. Patient was feeling dizzy for one day and had two episode of seizure. as per daughter he did not miss medicaiton. He was given versed and later had ct head in hospital. ct head showed there is right occpital stroke He has history of stroke and on eliquis, not clear why he is on eliquis. He has stroke in past. 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
[2020-07-08 06:51] LABS: HEMATOCRIT 44.1 % (35.4-49); HEMOGLOBIN 14.3 GM/dL (11.7-16.9); MCH 28.4 pg (25.7-33.7); MCHC 32.4 g/dl (32.0-35.9); MEAN CELL VOLUME 87.7 fl (80-96); MEAN PLT VOLUME 9.7 fl (7.5-11.1); PLATELET COUNT 118 K/MM3 (134-434); RBC 5.03 M/mm3 (4.00-5.60); RDW 13.5 % (11.9-15.9); WHITE BLOOD COUNT 5.6 K/mm3 (4.0-10.0)
[2020-07-08 07:11] LABS: BLOOD UREA NITROGEN 23.4 mg/dL (7-18); CALCIUM 8.7 mg/dL (8.5-10.1); CREATININE 1.5 mg/dL (0.55-1.3); MAGNESIUM 2.1 mg/dL (1.8-2.4); PHOSPHOROUS 3.3 mg/dL (2.5-4.9)
--- NOTE | 2020-07-08 08:22 | PN ---
Progress Note, Physician History of Present Illness: 79 yo m with pmh seizure, MA, Afib?, HTN, HLD, CHF presents to ED for syncopal event and seizure earlier today. Pt was walking to bathroom where he felt room was dizzy and he collapsed hit his head and had a seizure for about two minutes.; After, he was able to get up and go to the couch where he had another episode of seizure for two minutes where his entire body was shaking. Pt then had two episodes of emesis. Pt then had one more seizure lasting two minutes at which point EMS arrived and gave 5 versed IM. After which pt explains he did not have any more seizures and feels better. Pt currently denies any dizziness, chest pain, SOB, headache, weakness, abdominal pain. IN ER, pt was noted to be on both Sotalol and metoprolol. PMH: MA, afib?, HTN, HLD, CVA PSH: Left sided nephrectomy Meds: does not remember Allegies: NKA Social: significant smoking history quit in , social drinker, denies drugs - Current Medication List Current Medications: Active Medications Allopurinol (Zyloprim -) 100 mg PO BID [facility] Last Admin: 07/07/20 21:16 Dose: 100 mg Documented by: Apixaban (Eliquis -) 5 mg PO BID [facility] Last Admin: 07/07/20 21:16 Dose: 5 mg Documented by: Atorvastatin Calcium (Lipitor -) 20 mg PO HS [facility] Last Admin: 07/07/20 21:16 Dose: 20 mg Documented by: Levetiracetam (Keppra -) 750 mg PO BID [facility] Last Admin: 07/07/20 21:16 Dose: 750 mg Documented by: Pantoprazole Sodium (Protonix -) 40 mg PO BID [facility] Last Admin: 07/07/20 21:16 Dose: 40 mg Documented by: Sotalol HCl (Betapace -) 80 mg PO DAILY [facility] Last Admin: 07/07/20 09:02 Dose: 80 mg Documented by: Tamsulosin HCl (Flomax -) 0.4 mg PO DAILY@0830 [facility] Last Admin: 07/07/20 09:02 Dose: 0.4 mg Documented by: - Objective Vital Signs: Vital Signs Temperature 98.2 F 07/08/20 06:00 Pulse Rate 55 L 07/08/20 06:00 Respiratory Rate 18 07/08/20 06:00 Blood Pressure 136/89 07/08/20 06:00 O2 Sat by Pulse Oximetry (%) 95 07/08/20 06:00 Eyes: Yes: WNL, Conjunctiva Clear, EOM Intact HENT: Yes: WNL, Atraumatic, Normocephalic Neck: Yes: WNL, Supple, Trachea Midline Cardiovascular: Yes: WNL, Regular Rate and Rhythm Respiratory: Yes: WNL, Regular, CTA Bilaterally Gastrointestinal: Yes: WNL, Normal Bowel Sounds Genitourinary: Yes: WNL Musculoskeletal: Yes: WNL Extremities: Yes: WNL Edema: No Integumentary: Yes: WNL Labs: CBC, BMP 07/08/20 05:55 07/08/20 05:55 INR, PTT INR 1.05 (0.83-1.09) 07/05/20 20:50 Problem List - Problems (1) Medial orbital wall fracture Code(s): S02.839A - FRACTURE OF MEDIAL ORBITAL WALL, UNSPECIFIED SIDE, INIT (2) Occipital cortex infarction Code(s): I63.9 - CEREBRAL INFARCTION, UNSPECIFIED (3) Seizure Code(s): R56.9 - UNSPECIFIED CONVULSIONS (4) Syncope Code(s): R55 - SYNCOPE AND COLLAPSE Assessment/Plan Seizures hx right occipital parietal hemorrhagic CVA ? 2 yrs ago; signs of HTN affecting the brain HTN HLD obesity ?PAF Hx MA, CHF EKG: sinus bradycardia; 1st degree AVB; QTC wnl. Plan: Seizure w/u and Rx per neurologist. Stop metoprolol; continue Sotalol (on once a day, and this is appropriate, given Cr clearance <60, as discussed with pharmacist); f/u prior cardiac workup at [facility] (pt says he had "electrical shock" to stop arrhythmia (?AF/flutter) and was then placed on Apixaban a year ago). Will f/u HR, QTc. ECHO for LVEF, chamber sizes, valve status. Telemetry Increase statin dose; keep LDL cholesterol < 70 mg/dL. Addendum: Pt's son visited pt. He says his father had an argument with his , then went to the bathroom. He was trying to have a bowel movement when he fell; they could not open the door because his body was blocking it, and had to wait until he woke up on his own. He then had another episode a few minutes later that elicited EMS. Pt is on Sotalol 80 bid and metoprolol 25 mg (?daily; ? tartrate or succinate). Pt was treated at [facility] for cardioversion of "atrial fibrillation". 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 Combs (?amna).
[2020-07-08] MEDS: TAMSULOSIN HCL 0.4 MG CAP PO SCH (09:14)
[2020-07-08] MEDS: levETIRAcetam 250 MG TABLET PO SCH (09:14)
[2020-07-08] MEDS: APIXABAN 5 MG TABLET PO SCH (09:14)
[2020-07-08] MEDS: PANTOPRAZOLE 40 MG TABLET PO SCH (09:14)
[2020-07-08] MEDS: ALLOPURINOL 100 MG TABLET (FP) PO SCH (09:14)
--- NOTE | 2020-07-08 10:23 | CONSULT ---
Admitting History and Physical - Admission History of Present Illness: 79 yo m with pmh seizure, [place], Afib?, HTN, HLD, CHF presents to ED for syncopal event and seizure on 07/05. 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 M/V changes Selected Entries 07/07/20 07/07/20 07/08/20 09:30 20:36 02:00 Breakfast 100% Diet Tolerated Well Well Supper 100% Pulse Rate 49 L Blood Pressure 125/71 07/08/20 07/08/20 07/08/20 06:00 09:17 10:00 Breakfast 100% Diet Tolerated Well Supper Pulse Rate 55 L 50 L Blood Pressure 136/89 125/69 Laboratory Tests 07/06/20 07/08/20 00:30 05:55 WBC 5.6 COVID-19 ([place]) Not detected On reg diet/thin liquids. History Source: Patient, Medical Record Limitations to Obtaining History: No Limitations - Smoking History Smoking history: Never smoked Have you smoked in the past 12 months: No History - Admission Reason For Visit: SEIZURE,SYNCOPE - Diagnostics X-ray: Report Reviewed CT Scan: Report Reviewed MRI: Report Reviewed - General Mental Status: Alert and Oriented Attention: Intact Ability to Follow Directions: Excellent Head/Neck Control: WFL - Hearing Hearing: Functional Speech Evaluation - Communication Primary Language: ZAMBIAN Communication: Yes: Within Normal Limits - Speech Production Able to Make Needs Known: Yes: WNL Intelligibility: Yes: WNL - Speech Characteristics Voice Loudness: Normal Voice Pitch: Yes: Normal Voice Phonatory-based Quality: Yes: Normal Speech Pattern: Normal Speech Clarity: < 100% Nasal Resonance: Normal Articulation: Yes: Precise Rate of Speech: Intact - Language/Auditory Comprehension Follows: Yes: 2 Stage Simple Commands - Language/Verbal Expression Able to Respond to Simple Queries: Yes: WNL Able to Communicate Wants and Needs: Yes: WNL Functional Communication Status: Yes: WNL - Swallow Evaluation/Bedside Assessment Current Nutritional Intake: Regular, Thin Liquids Oral Secretions: Yes: WFL Dentition: Yes: Adequate Facial Symmetry at Rest: Symmetrical Facial Symmetry on Retraction: Symmetrical Facial Movement: Controlled Sensation: Normal Against Resistance Opening: Normal Against Resistance Closing: Normal Pucker Lips: Normal Smile: Normal Lingual Movement: Normal, Symmetric Lingual Speed of Movement: Normal Lingual Movement Strgth Against Opposition: Normal Lingual Movement Characteristics: Normal Velopharyngeal Movement: Normal Laryngeal Movement: Able to Palpate Rate of Intake: WFL Bolus Size: WFL Labial Seal: WFL Chewing: WFL Oral Prep Time: WFL A-P Transit: WFL Pocketing: None Timing of Swallow: WFL Coughing/Throat Clear: No Change in Voice: No Recommendations - Speech Evaluation, Impression/Plan Impression: sp/sw/language/cognition intact - Dysphagia Impressions/Plan Swallowing Skills: WFL Dysphagia Impressions: No Impairment *Silent aspiration: cannot be R/O at bedside - Recommendations Diet Consistency: Regular Medication Administration: Whole with water Liquids: Thin Liquids
--- NOTE | 2020-07-08 10:52 | EKG ---
Test Reason : Blood Pressure : / mmHG Vent. Rate : 049 BPM Atrial Rate : 049 BPM P-R Int : 210 ms QRS Dur : 090 ms QT Int : 496 ms P-R-T Axes : 062 040 065 degrees QTc Int : 448 ms SINUS BRADYCARDIA WITH 1ST DEGREE A-V BLOCK OTHERWISE NORMAL ECG WHEN COMPARED WITH ECG OF 05-JUL-2020 22:30, NO SIGNIFICANT CHANGE WAS FOUND Confirmed by jB Weller ([id number]) on 07/08/2020 10:51:39 AM Referred By: Confirmed By:Bj Weller
[2020-07-08] MEDS ORDERED: PT OWN MED DRAWER 7, Y5N ONE (11:08)
--- NOTE | 2020-07-08 11:35 | ECHO ---
Name: MEDINA SINE, DHIRAJ Exam:Adult Echocardiogram Study Date: 07/08/2020 10:24 AM Age: 79 yrs Reason For Study: SYNCOPE MMode/2D Measurements & Calculations IVSd: 1.3 cm Ao root diam: 2.9 cm LVIDd: 4.7 cm LA dimension: 3.8 cm LVIDs: 3.3 cm LVPWd: 1.6 cm LVPWs: 1.9 cm EDV(Teich): 103.9 ml ESV(Teich): 45.2 ml RV S Gadiel: 13.7 cm/sec Doppler Measurements & Calculations MV E max gadiel: 55.8 cm/sec Ao V2 max: 180.0 cm/sec MV A max gadiel: 91.3 cm/sec Ao max P.0 mmHg MV E/A: 0.61 MV dec time: 0.21 sec LV V1 max P.6 mmHg TR max gadiel: 291.2 cm/sec LV V1 max: 155.0 cm/sec TR max P.8 mmHg PA V2 max: 114.0 cm/sec Med Peak E' Gadiel: 4.2 cm/sec PA max P.2 mmHg Med E/e': 13.4 Lat Peak E' Gadiel: 4.5 cm/sec Lat E/e': 12.4 Procedure Study Quality: Fair. Left Ventricle The left ventricle is normal in size. There is mild concentric left ventricular hypertrophy. The left ventricular ejection fraction is normal. Ejection Fraction = 60-65%. The transmitral spectral Doppler flow pattern is suggestive of impaired LV relaxation. Right Ventricle The right ventricle is normal in size and function. Atria The left atrium is mildly dilated. Right atrial size is normal. Mitral Valve The mitral valve is grossly normal. There is trace mitral regurgitation. Tricuspid Valve The tricuspid valve is not well visualized, but is grossly normal. There is trace tricuspid regurgita tion. Right ventricular systolic pressure is normal. Aortic Valve Mildly calcified. Pulmonic Valve The pulmonic valve is not well visualized. Great Vessels The aortic root is normal size. Pericardium/Pleura There is no pericardial effusion. Interpretation Summary LV: normal size,mild LVH,normal systolic function, EF 55-60%,impaired relaxation RV; Shania; LA: Mildly dilated AV; Mildly calcified Trace TR with normal RVSP. Bj Weller 07/08/2020 11:34 AM
[2020-07-08] MEDS: SOTALOL HCL 80 MG TABLET (FP) PO SCH (11:56)
--- NOTE | 2020-07-08 12:26 | PN ---
Teaching Attending Note Name of Resident: Tao Davidson ATTENDING PHYSICIAN STATEMENT I saw and evaluated the patient. I reviewed the resident's note and discussed the case with the resident. I agree with the resident's findings and plan as documented. SUBJECTIVE: OBJECTIVE: Last Vital Signs Temp Pulse Resp BP Pulse Ox 98.5 F 50 L 18 125/69 99 07/08/20 09:17 07/08/20 09:17 07/08/20 09:17 07/08/20 09:17 07/08/20 09:17 GEN: not in acute distressed, pleasant HEENT: NC/AT EOMI, pupils RRR, not p/c/j RESP: CTA bilat CARDS: non tachy, no murmurs ABD: soft, nt/nd +BS EXT: No swelling/Edema Neuro: Non-focal, A&OX3 CBCD WBC 5.6 K/mm3 (4.0-10.0) 07/08/20 05:55 RBC 5.03 M/mm3 (4.00-5.60) 07/08/20 05:55 Hgb 14.3 GM/dL (11.7-16.9) 07/08/20 05:55 Hct 44.1 % (35.4-49) 07/08/20 05:55 MCV 87.7 fl (80-96) 07/08/20 05:55 MCHC 32.4 g/dl (32.0-35.9) 07/08/20 05:55 RDW 13.5 % (11.9-15.9) 07/08/20 05:55 Plt Count 118 K/MM3 (134-434) L 07/08/20 05:55 MPV 9.7 fl (7.5-11.1) 07/08/20 05:55 CMP Sodium 141 mmol/L (136-145) 07/08/20 05:55 Potassium 4.0 mmol/L (3.5-5.1) 07/08/20 05:55 Chloride 110 mmol/L (98-107) H 07/08/20 05:55 Carbon Dioxide 25 mmol/L (21-32) 07/08/20 05:55 Anion Gap 6 MMOL/L (8-16) L 07/08/20 05:55 BUN 23.4 mg/dL (7-18) H 07/08/20 05:55 Creatinine 1.5 mg/dL (0.55-1.3) H 07/08/20 05:55 Calcium 8.7 mg/dL (8.5-10.1) 07/08/20 05:55 Total Bilirubin 0.4 mg/dL (0.2-1) 07/06/20 05:57 AST 27 U/L (15-37) 07/06/20 05:57 ALT 27 U/L (13-61) 07/06/20 05:57 Alkaline Phosphatase 55 U/L (45-117) 07/06/20 05:57 Total Protein 6.8 g/dl (6.4-8.2) 07/06/20 05:57 Albumin 3.5 g/dl (3.4-5.0) 07/06/20 05:57 Active Medications Allopurinol (Zyloprim -) 100 mg PO BID [facility] Last Admin: 07/08/20 09:14 Dose: 100 mg Documented by: Apixaban (Eliquis -) 5 mg PO BID [facility] Last Admin: 07/08/20 09:14 Dose: 5 mg Documented by: Atorvastatin Calcium (Lipitor -) 20 mg PO HS [facility] Last Admin: 07/07/20 21:16 Dose: 20 mg Documented by: Levetiracetam (Keppra -) 750 mg PO BID [facility] Last Admin: 07/08/20 09:14 Dose: 750 mg Documented by: Pantoprazole Sodium (Protonix -) 40 mg PO BID [facility] Last Admin: 07/08/20 09:14 Dose: 40 mg Documented by: Sotalol HCl (Betapace -) 80 mg PO DAILY [facility] Last Admin: 07/08/20 11:56 Dose: 80 mg Documented by: Tamsulosin HCl (Flomax -) 0.4 mg PO DAILY@0830 [facility] Last Admin: 07/08/20 09:14 Dose: 0.4 mg Documented by: ASSESSMENT AND PLAN: 79-year-old male with past medical history of seizure disorder, [place], A. fib?, Hypertension, Hemorrhagic CVA, glaucoma, left nephrectomy, hyperlipidemia, CHF presents to the ED with syncopal episode and seizure. #Syncope vs convulsive syncope vs seizure -not good historian -denies post ictal confusion, had similar episodes in past Echocardiogram EF 60-65% Carotid Doppler not clinically significant -MRI shows old hemorrhagic infarction with hemosiderin deposition PT eval for discharge planning #Seizure on Keppra 750 mg bid -neurology following #aFib -discussed with cardiology and neurology; pt need eliquis because of his AFib, there's no absolute c/i but he will have higher risk of bleed than usual -satolol daily #DVT prophylaxis: on NOAC
[2020-07-08 13:55] VITALS: BP 133/69; PULSE 51; TEMP 98.2
--- NOTE | 2020-07-08 18:20 | PN ---
Progress Note (short form) - Note Progress Note: 79 year old male, seen with daughter at bed side. Patient was feeling dizzy for one day and had two episode of seizure. as per daughter he did not miss [facility]. He was given versed and later had ct head in hospital. ct head showed there is right occpital stroke He has history of stroke and on eliquis, not clear why he is on eliquis. He has stroke in past. 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
--- NOTE | 2020-07-09 05:45 | DS ---
Physical Exam: SUBJECTIVE: Patient seen and examined at bedside. Patient denies any acute overnight events. OBJECTIVE: Vital Signs Period Temp Pulse Resp BP Sys/Gamez Pulse Ox Last 24 Hr 98.2 F-98.5 F 50-55 18-18 125-136/69-89 95-99 PHYSICAL EXAM GENERAL: The patient is awake, alert, and fully oriented, in no acute distress. LUNGS: Breath sounds equal, clear to auscultation bilaterally, no wheezes, no crackles, no accessory muscle use. HEART: Regular rate and rhythm, S1, S2 without murmur, rub or gallop. ABDOMEN: Soft, nontender, nondistended, normoactive bowel sounds, no guarding, no rebound, no hepatosplenomegaly, no masses. EXTREMITIES: 2+ pulses, warm, well-perfused, no edema. SKIN: Warm, dry, normal turgor, no rashes or lesions noted. LABS Laboratory Results - last 24 hr 07/05/20 07/08/20 07/08/20 20:50 05:55 05:55 WBC 5.6 RBC 5.03 Hgb 14.3 Hct 44.1 MCV 87.7 MCH 28.4 MCHC 32.4 RDW 13.5 Plt Count 118 L MPV 9.7 Sodium 141 Potassium 4.0 Chloride 110 H Carbon Dioxide 25 Anion Gap 6 L BUN 23.4 H Creatinine 1.5 H Est GFR (CKD-EPI)AfAm 50.59 Est GFR (CKD-EPI)NonAf 43.65 Random Glucose 88 Calcium 8.7 Phosphorus 3.3 Magnesium 2.1 Levetiracetam 3.5 L HOSPITAL COURSE: Date of Admission:07/05/20 Mr. Braxton abdul is a 79M w a h/o seizure disorder, [place], A. fib on eliquis, Hypertension, CVA, glaucoma, L nephrectomy, hyperlipidemia, CHF presented to the emergency department for a syncope and possible seizure. The patient was reported to have had 3 episodes of suspected syncope vs seizure. The patient was placed on telemetry without any acute events during the hospital course. The patient was evaluated by neurology and placed an a loading dose of keppra and had his home dose of keppra increased. The patient was reported for non- compliance of medication. Brain MRI reveals past ischemic infarct without acute pathology. Patient followed by Dr. Dumas for further workup outpatient for EEG. Echo preformed did not reveal acute pathology. Orthostatics were negative for orthostatic hypotension. Patient was taking metoprolol and sotalol and will continue to only take sotalol. Patient will follow up with Dr. Jean outpatient for medication management and syncope workup. Date of Discharge: 07/09/20 Minutes to complete discharge: 35 Discharge Summary Problems reviewed: Yes Reason For Visit: SEIZURE,SYNCOPE Condition: Stable - Instructions Diet, Activity, Other Instructions: YOUR VISIT You were admitted to the hospital for episodes of fainting. While you were in the hospital we evaluated you with lab work, blood work, imaging including, MRI of your brain, ultrasound of your kidneys, and ultrasound of your carotids, echocardiogram of your heart, x-rays of your chest, CT scan of you head, facial bones,and cervical spine. Facial bones CT scan showed a fracture of the right side of your face that will heal on its own. You were evaluated by specialists during your hospital course such as the awning craftsperson and neurologist. You were treated with anti-seizure medications, heart medications and fluids.You will need to follow up with your awning craftsperson for further work up of the possibility of having vasovagal syncope. You will also need to follow up with neurology to evaluate your history of seizures with an EEG test that can be done outpatient. During your hospital course you were found to be on two heart rate lowering medications (Sotalol and metoprolol tartrate) the awning craftsperson had discontinued your metoprolol and continued on the sotalol during your stay. During you hospital course, Neurology had increased your keppra dose from 500mg to 750 mg BID to help prevent any future seizures. MEDICATIONS: Please START taking Atorvastatin 20mg before bed each day. Please START taking Keppra 750mg twice a day. Your Sotalol[BETAPACE] 80mg should be taken once daily Please STOP taking Metoprolol tartrate Please STOP taking Simvistatin Please continue taking all other medications as prescribed. REFERRAL: Please follow up with Dr. Combs (cardiology) at [place] within 1 week of discharge. Please follow up with Dr. Dumas (Neurology) for your seizure work up within 1 week of discharge. Please follow up with your primary care physician within 1 week of discharge to review your hospital course. ADDITIONAL INFORMATION: You are being discharged home. Please seek the nearest emergency department if you start experiencing further episodes of fainting, increased confusion, loss of consciousness, dizziness, headache, fever, chills, shortness of breath, or chest pain or any new or concerning symptoms. Referrals: Sachin Dumas MD [Staff Physician] - 1 Week (possible seizure epsiode follow up) Kendrick Jean MD [Staff Physician] - 1 Week (possible syncopal episode follow up ) Eliane Contreras MD [Primary Care Provider] - Disposition: HOME - Home Medications Comprehensive Discharge Medication List: Ambulatory Orders Allopurinol [Zyloprim -] 100 mg PO DAILY 07/06/20 Apixaban [Eliquis -] 5 mg PO BID 07/06/20 Furosemide [Lasix -] 40 mg PO DAILY 07/06/20 Lisinopril [Prinivil] 10 mg PO DAILY 07/06/20 Tamsulosin HCl [Flomax -] 0.4 mg PO DAILY 07/06/20 Atorvastatin Ca [Lipitor] 20 mg PO HS #30 tablet 07/08/20 Sotalol HCl [Betapace -] 80 mg PO DAILY tablet 07/08/20 levETIRAcetam [Keppra -] 750 mg PO BID #180 tablet 07/08/20 This patient is new to me today: No Emergency Visit: Yes ED Registration Date: 07/05/20 Care time: The patient presented to the Emergency Department on the above date and was hospitalized for further evaluation of their emergent condition. Critical Care patient: No - Discharge Referral Referred to [facility] Med P.C.: No ATTENDING PHYSICIAN STATEMENT I saw and evaluated the patient. I reviewed the resident's note and discussed the case with the resident. I agree with the resident's findings and plan as documented. SUBJECTIVE: OBJECTIVE: ASSESSMENT AND PLAN:
== END 2020-07-08 17:44 | disposition home or self-care (01) | DRG 53 ==
LOC: JER 19:45 → JERBED 22:31 → J4S 07-06 01:34
PROVIDERS: ADMIT Internal Medicine; ATTEND Student in an Organized Health Care Education/Training Program
DX: R56.9 Unspecified convulsions (principal); I51.7 Cardiomegaly; J98.11 Atelectasis; I10 Essential (primary) hypertension; I44.0 Atrioventricular block, first degree; R55 Syncope and collapse; E66.9 Obesity, unspecified; Z68.34 Body mass index [BMI] 34.0-34.9, adult; E78.5 Hyperlipidemia, unspecified; Z90.5 Acquired absence of kidney; I25.10 Atherosclerotic heart disease of native coronary artery without angina pectoris; I48.0 Paroxysmal atrial fibrillation; S02.839A Fracture of medial orbital wall, unspecified side, initial encounter for closed fracture; R00.1 Bradycardia, unspecified; I50.9 Heart failure, unspecified; N17.9 Acute kidney failure, unspecified; H40.9 Unspecified glaucoma; W19.XXXA Unspecified fall, initial encounter; Y93.9 Activity, unspecified; Y92.89 Other specified places as the place of occurrence of the external cause; Y99.9 Unspecified external cause status
CPT/HCPCS: 36415; 70450-TC; 70486-TC; 70551-TC; 71045-TC-FY; 72125-TC; 76775-TC; 80048; 80053; 80061; 80177; 81003; 82550; 82553; 83721; 83735; 84100; 84443; 84484; 85025; 85027; 85610; 85730; 93005; 93010; 93306-TC; 93880-TC; 97116-GP; 97161-GP; 99285-25; J1644; U0003